=== PATIENT | female | born 1950 | race Caucasian/White ===

== ENCOUNTER 2016-10-20 10:20 | Day surgery (SDC) | payer MEDICARE, BC ==
[2016-10-19 11:25] LABS: HEMATOCRIT 46.8 % (36.0-48.0); HEMOGLOBIN 15.6 g/dL (12-16); MCH 32.3 pg (26.0-34.0); MCHC 33.3 g/dL (31.0-37.0); MCV 96.9 fL (80.0-100.0); MEAN PLATELET VOLUME 11.6 fL (7.4-10.4); RBC 4.83 10x6/uL (4.00-5.40); RDW 13.2 % (11.5-14.5); WBC 5.3 10x3/uL (4.8-10.8)
[~2016-10-20] VITALS: Ht 166.4 cm; Wt 77.1 kg
[~2016-10-20 10:20] MED LIST: AMBIEN5 MG PO; CO Q-10200 MG PO; DIOVAN40 MG PO; MAGNESIUM OXID250 MG PO; MOBIC7.5 MG PO; NASACORT10.8 ML NASAL; SYNTHROID75 MCG PO; TENORMIN25 MG PO; ZOCOR20 MG PO
[2016-10-20 11:00] VITALS: BP 124/76; Ht 166.4 cm; Wt 77.1 kg
[2016-10-20] MEDS ORDERED: DEMEROL50 MG PO (12:35)
--- NOTE | 2016-10-20 15:15 | NUR ---
C/O NAUSEA, PHENERGAN 25MG IM PER DENISA MENDES RN GIVEN. NO EMESIS. FAMILY AT BEDSIDE.
--- NOTE | 2016-10-20 16:55 | NUR ---
DISCHARGED HOME VIA .
--- NOTE | 2016-10-24 14:52 | OP ---
PATIENT NAME: ALFONSO CLARK MEDICAL RECORD: [id number] :52 LOCATION:[facility] ADMISSION DATE: SURGEON: CARMELA ANDREWS MD DATE OF OPERATION: 10/20/2016 PREOPERATIVE DIAGNOSES: Rotator cuff tear of the right shoulder with impingement syndrome and acromioclavicular arthritis. POSTOPERATIVE DIAGNOSES: Rotator cuff tear of the right shoulder with impingement syndrome and acromioclavicular arthritis. PROCEDURES: 1. Arthroscopic rotator cuff repair. 2. Arthroscopic distal clavicle excision done through a separate incision -- 1 cm. 3. Arthroscopic subacromial decompression with acromioplasty and bursectomy of the right shoulder. SURGEON: Carmela Andrews MD ANESTHESIA: General. INTRAOPERATIVE COMPLICATIONS: None. SUMMARY OF PATHOLOGIC FINDINGS: Consistent with the preoperative MRI. The patient had full thickness rotator cuff tearing along with a downward sloping acromion with excoriation of the coracoacromial ligament as well as acromioclavicular arthritis. OPERATIVE SUMMARY IN DETAIL: After obtaining the appropriate preoperative orthopedic surgery consents as well as anesthetic consultation, evaluation and clearance, the patient was brought to the operating room and placed on the operating table in supine position. After adequate general laryngeal mask airway was administered, the patient was placed in a left lateral decubitus position. All pressure points were well padded to include down leg peroneal pad as well as axillary roll. The patient was held firmly to the operating table using the vacuum pack suction system. Right upper extremity and shoulder were prepped and draped in routine sterile fashion. The arm was held in the [employer] traction boom at 30 degrees of forward flexion, 30 degrees of abduction with 10 pounds of traction laterally. Arthroscopy was established in the glenohumeral joint from posterior portal. Anterior portal was established in the anterior safe interval. Diagnostic arthroscopy revealed the above findings. Accessory lateral portal was created over the rotator cuff tear. The rotator cuff was then debrided gently with the arthroscopic resector and decortication of the articular aspect of the rotator cuff tearing was undertaken. Having completed this, attention was turned to the subacromial space. While in the subacromial space, [place] tissue ablation system was utilized to denude the undersurface of the acromion of all soft tissue elements and release the coracoacromial ligament. Having completed this, a bur was then used to perform acromioplasty at the level of acromioclavicular joint. Then, attention was turned to the distal clavicle. Through a separate arthroscopic portal anteriorly under direct arthroscopic visualization, distal clavicle was excised of all osteophytes as well as the arthritic surface. Having completed this, attention was turned to the rotator cuff. Further decortication was then followed by placement of a buttress locking Fiber[employer]ape that was then anchored laterally with a single 5.5 OPERATIVE REPORT [id number] ALFONSO CLARK from [employer]. Having completed this, arthroscopy portals were closed in routine interrupted fashion using 4-0 Prolene. Sterile dressings were applied. The patient was awakened, taken to recovery room in stable condition. All final needle and sponge counts were correct. TRANSINT:[id number] Voice Confirmation ID: [id number] DOCUMENT ID: [id number] CARMELA ANDREWS MD at 1452 CC: [id number] DICTATION DATE: 10/20/16 1238 GENERAL ENGINEER: 10/20/[address] [facility] 10/20/16 [id number] [place] [address]
== END 2016-10-20 16:50 | disposition home or self-care (01) ==
LOC: D.OPS 10:20 → D.PAN 11:15 → D.OPS 12:15 → D.PAN 14:35 → D.OPS 16:45
PROVIDERS: Anesthesiology
DX: M75.121 Complete rotator cuff tear or rupture of right shoulder, not specified as traumatic (principal); M75.41 Impingement syndrome of right shoulder; M13.811 Other specified arthritis, right shoulder

== ENCOUNTER 2017-01-23 08:20 | Day surgery (SDC) | payer MEDICARE, BC ==
[~2017-01-23] VITALS: Ht 166.4 cm; Wt 77.1 kg
--- NOTE | ~2017-01-23 | OP ---
PATIENT NAME: ALFONSO CLARK MEDICAL RECORD: [id number] :52 LOCATION:[facility] ADMISSION DATE: SURGEON: CARMELA ANDREWS MD DATE OF OPERATION: 01/23/2017 PREOPERATIVE DIAGNOSIS: Adhesive capsulitis of the right shoulder. POSTOPERATIVE DIAGNOSIS: Adhesive capsulitis of the right shoulder. PROCEDURE: Manipulation under anesthesia. ANESTHESIA: TIVA. INTRAOPERATIVE COMPLICATIONS: None. SUMMARY OF PATHOLOGIC FINDINGS: The patient had an excellent release with manipulation. OPERATIVE SUMMARY IN DETAIL: After obtaining the appropriate preoperative orthopedic surgery consent as well as anesthetic consultation, evaluation and clearance, the patient was brought to the operating room and placed on the operating table in supine position. After adequate general TIVA anesthesia was administered, the scapula was stabilized and manipulation was first carried out in abduction followed by external rotation, internal rotation, flexion, and extension. Excellent release was obtained. The patient was returned back to outpatient in stable condition. TRANSINT:[id number] Voice Confirmation ID: [id number] DOCUMENT ID: [id number] CARMELA ANDREWS MD CC: [id number] DICTATION DATE: 01/23/17 1239 CHIEF RADIOLOGY: 01/23/17 1653 [facility] [address] [place] [address]
[~2017-01-23 08:20] MED LIST changes: +DEMEROL50 MG PO; +ENDOCET 10-3251 TAB PO; +SOMA350 MG PO
[2017-01-23 10:07] VITALS: BP 124/77; Ht 166.4 cm; Wt 77.1 kg
[2017-01-23 10:08] LABS: HEMATOCRIT 41.7 % (36.0-48.0); HEMOGLOBIN 14.4 g/dL (12-16); LYMPHOCYTES 30.8 % (15-50); MCH 32.4 pg (26.0-34.0); MCHC 34.5 g/dL (31.0-37.0); MCV 93.9 fL (80.0-100.0); MEAN PLATELET VOLUME 10.2 fL (7.4-10.4); NEUTROPHILS 57.1 % (40-80); PLATELET COUNT 173 10x3/uL (130-400); RBC 4.44 10x6/uL (4.00-5.40); RDW 13.2 % (11.5-14.5); WBC 4.1 10x3/uL (4.8-10.8)
[2017-01-23 10:15] LABS: CALC OSMOLALITY 288 mosm/kg (275-300); CALCIUM 8.7 mg/dL (8.5-10.1); CARBON DIOXIDE 28.5 mmol/L (21.0-32.0); CHLORIDE - SERUM 107 mmol/L (98-107); CREATININE - SERUM 0.7 mg/dL (0.6-1.3); GLUCOSE 89 mg/dL (74-106); POTASSIUM - SERUM 3.9 mmol/L (3.5-5.1); SODIUM 143 mmol/L (136-145); UREA NITROGEN 27 mg/dL (7-18); eGFR NON AFRICAN AMERICAN 89 mL/min (90-120)
--- NOTE | 2017-01-23 12:30 | NUR ---
PATIENT LEFT ON OR STRETCHER FOR PROCEDURE, FRANK.
[2017-01-23] MEDS ORDERED: PERCOCET 10/3251 TA1 PO (12:36)
--- NOTE | 2017-01-23 15:25 | NUR ---
CARE OF PATIENT ASSUMED FROM BETTY LINDA RN
--- NOTE | 2017-01-23 16:11 | NUR ---
PATIENT C/O CONTINUED NAUSEA AND VOMITING, AGREEABLE TO TAKING ZOFRAN INJECTION. ZOFRAN GIVEN IV
--- NOTE | 2017-01-23 17:00 | NUR ---
PATIENT STILL NAUSEATED BUT HOLDING SOME SPRITE DOWN, WANTS TO BE DISCHARGED HOME. LEFT WRIST PIV DC'D WITH TIP INTACT. PATIENT DRESSING IN PERSONAL CLOTHING WITH SPOUSE STANDING BY
--- NOTE | 2017-01-23 17:10 | NUR ---
DISCHARGE INSTRUCTIONS REVIEWED WITH PATIENT AND SPOUSE. PATIENT DISCHARGED HOME VIA WHEELCHAIR TO PRIVATE VEHICLE WITH SPOUSE
== END 2017-01-23 17:10 | disposition home or self-care (01) ==
LOC: D.OPS 08:20 → D.PAN 13:45 → D.OPS 17:10
PROVIDERS: Anesthesiology
DX: M75.01 Adhesive capsulitis of right shoulder (principal)